=== PATIENT | male | born 1955 | race Asian ===

== ENCOUNTER 2018-03-02 14:35 | Inpatient (IN) | payer OTHER ==
[~2018-03-02] VITALS: Ht 172.7 cm; Wt 124.9 kg
[2018-03-02] MEDS ORDERED: AMLO10TA6 PO (15:15)
[2018-03-02] MEDS ORDERED: HYDR25TA4 PO (15:15)
[2018-03-02] MEDS ORDERED: POTA-10 PO (15:15)
[2018-03-02] MEDS ORDERED: CYCL5TAB PO (15:15)
[2018-03-02] MEDS ORDERED: METO50TA16 PO (15:15)
[2018-03-02] MEDS ORDERED: ENAL20TA PO (15:15)
[2018-03-02] MEDS ORDERED: HYDR-3326 PO (15:15)
[2018-03-02] MEDS ORDERED: METF-440 PO (15:15)
[2018-03-02] MEDS ORDERED: ONDANSETRON 4 MG/2 ML VIAL IV ONE (15:30)
[2018-03-02] MEDS ORDERED: MORPHINE SULFATE 2 MG/1 ML DISP.SYRIN IV ONE (15:30)
[2018-03-02] MEDS ORDERED: IV NORMAL SALINE 1000 ML BAG IV ONE (15:30)
[2018-03-02] MEDS ORDERED: ONDANSETRON 4 MG/2 ML VIAL ONE (15:39)
[2018-03-02] MEDS ORDERED: MORPHINE SULFATE 4 MG/1 ML DISP.SYRIN ONE (15:39)
[2018-03-02 15:40] LABS: BASOPHILS # (AUTO) 0.2 K/uL (0.0-8.0); BASOPHILS % (AUTO) 1.8 % (0.0-2.0); EOSINOPHILS # (AUTO) 0.2 K/uL (0.0-0.7); EOSINOPHILS % (AUTO) 1.1 % (0.0-7.0); HEMATOCRIT 36.6 % (36.7-47.1); HEMOGLOBIN 12.5 g/dL (12.5-16.3); LYMPHOCYTES # (AUTO) 1.3 K/uL (20.0-40.0); LYMPHOCYTES % (AUTO) 9.1 % (20.5-51.5); MEAN CORPUSCULAR HEMOGLOBIN 30.9 uug (23.8-33.4); MEAN CORPUSCULAR HGB CONC 34 g/dL (32.5-36.3); MEAN CORPUSCULAR VOLUME 90.6 fL (73.0-96.2); MONOCYTES # (AUTO) 1.4 K/uL (2.0-10.0); MONOCYTES % (AUTO) 10.2 % (0.0-11.0); NEUTROPHILS # (AUTO) 10.8 K/uL (1.8-8.9); NEUTROPHILS % (AUTO) 77.8 % (38.5-71.5); PLATELET COUNT (AUTO) 177 K/uL (152-348); RED BLOOD CELL COUNT(AUTO) 4.04 MIL/uL (4.06-5.63); WHITE BLOOD COUNT (AUTO) 13.9 K/uL (3.6-10.2)
[2018-03-02 15:55] LABS: BILIRUBIN,DIRECT 0.4 mg/dL (0.0-0.2); CREATININE 0.9 mg/dL (0.6-1.3); TOTAL PROTEIN, SERUM 7.2 g/dL (6.4-8.2)
[2018-03-02] MEDS ORDERED: INSU3INS8 SQ (15:57)
[2018-03-02 15:59] LABS: POTASSIUM 2.6 mmol/L (3.5-5.1)
--- NOTE | 2018-03-02 16:00 | NUR ---
hands off report given to hleena melgar lvn
[2018-03-02 16:15] LABS: BAND % (MANUAL) 2 % (0-10); EOSINOPHILS % (MANUAL) 2 % (0-8); LYMPHOCYTES % (MANUAL) 10 % (20-40); MONOCYTES % (MANUAL) 10 % (2-10); NEUTROPHILS % (MANUAL) 76 % (42-75)
[2018-03-02] MEDS ORDERED: POTASSIUM BICARBONATE/CIT AC 25 MEQ TABLET.EFF PO ONE (16:15)
[2018-03-02] MEDS ORDERED: POTASSIUM BICARBONATE/CIT AC 25 MEQ TABLET.EFF ONE (16:28)
[2018-03-02] MEDS ORDERED: POTASSIUM CHLORIDE 50 ML ONE (16:29)
[2018-03-02] MEDS: POTASSIUM CHLORIDE 50 ML IV SCH ×2 (16:38→16:39)
[2018-03-02 16:42] LABS: *BILIRUBIN,URIN NEGATIVE (NEGATIVE); *BLOOD, URINE 2+ (NEGATIVE); *CLARITY,URINE CLEAR (CLEAR); *COLOR,URINE YELLOW (YELLOW); *KETONES,URINE TRACE (NEGATIVE); *PROTEIN,URINE 1+ (NEGATIVE); *UROBILINOGEN,URINE 0.2 E.U./dl (NORMAL); LEUKOCYTE ESTERASE ,URINE NEGATIVE (NEGATIVE); NITRITE, URINE NEGATIVE (NEGATIVE); PH,URINE 5.5 (5.0-8.0); UGLUCOSE TRACE (NEGATIVE)
[2018-03-02] MEDS ORDERED: MAGNESIUM SULFATE/D5W 100 ML ONE (16:43)
[2018-03-02] MEDS: MAGNESIUM SULFATE/D5W 100 ML IV SCH (16:45)
[2018-03-02 16:49] LABS: MUCUS,URINE MODERATE /LPF (0-FEW); SQUAMOUS EPITHELIAL CELL,UR FEW /HPF (NONE SEEN); WBC,URINE 0-3 /HPF (0-3)
[2018-03-02] MEDS ORDERED: SWABABLE VALVE TRANSFER SET EA MC ONE (18:03)
[2018-03-02] MEDS ORDERED: NORMAL SALINE FLUSH 10 ML DISP.SYRIN ONE (18:03)
[2018-03-02] MEDS ORDERED: IOHEXOL 300MG/ML 100 ML INFUS..BTL ONE (18:03)
[2018-03-02] MEDS ORDERED: IV NORMAL SALINE 250 ML IV ONE (18:04)
--- NOTE | 2018-03-02 19:54 | NUR ---
Pt. admitted to TELE, under care of Dr. Abraham Belongs List completed.
[2018-03-02 20:00] VITALS: BP 157/89
--- NOTE | 2018-03-02 20:30 | NUR ---
RECEIVED PT FROM ER VIA [facility]. PT UNDER THE CARE OF DR. FERNANDEZ DX: BACK PAIN. PT SHOWS NO SIGNS OF DISTRESS. IV INTACT AND PATENT. BELONGING LIST DONE. ADMISSION PROCESS AND CARE PLAN INITIATED. NURSING HOME ASSESSMENT DONE. LOWER BILATERAL EXTREMITIES HAS DISCOLORATION AND HAS 1+ PITTING EDEMA. PT HAVE 10/10 PAIN ON THE BACK. WILL CONTINUE TO MONITOR.
--- NOTE | 2018-03-02 20:31 | NUR ---
PT HAS SURGICAL INCISION SITE ON HIS BACK WITH DRESSING INTACT. DIDN'T TAKE A PICTURE OF IT. BECAUSE PT REFUSED TO TAKE A PICTURE BECAUSE OF PAIN. PT STABLE. WILL CONTINUE TO MONITOR.
[2018-03-02] MEDS ORDERED: HYDROCODONE/APAP 5-325MG TABLET PO PRN (21:45)
[2018-03-02] MEDS ORDERED: Medication Not On Formulary EA (Cyclobenzaprine Hcl 10 MG) PO SCH (21:45)
[2018-03-02] MEDS ORDERED: ONDANSETRON 4 MG/2 ML VIAL IV PRN (21:45)
[2018-03-02] MEDS ORDERED: TEMAZEPAM 15 MG CAPSULE PO PRN (21:45)
[2018-03-02] MEDS ORDERED: PIPERACILLIN/TAZOBACTAM/D5W 3.375 G in PREMIXED 1 EACH IV SCH (22:00)
[2018-03-02] MEDS ORDERED: INSULIN REGULAR, HUMAN 300 UNIT/3 ML VIAL SQ PRN (22:00)
[2018-03-02] MEDS ORDERED: DEXTROSE 50% 50 ML DISP.SYRIN IV PRN (22:00)
[2018-03-02] MEDS ORDERED: PIPERACILLIN/TAZOBACTAM/D5W 3.375 G in PREMIXED 1 EACH IV ONE (22:30)
[2018-03-02] MEDS ORDERED: VANCOMYCIN IV 2,000 MG in IV DEXTROSE 5% 500 ML IV ONE (23:00)
[2018-03-02] MEDS: METOPROLOL TARTRATE 50 MG TABLET PO SCH (23:10)
[2018-03-02] MEDS: HYDROCODONE/APAP 5-325MG TABLET PO PRN (23:11)
[2018-03-02] MEDS ORDERED: PIPERACILLIN/TAZOBACTAM/D5W 50 ML IV ONE (23:16)
[2018-03-02] MEDS: ACETAMINOPHEN 325 MG TABLET PO PRN (23:40)
[2018-03-02] MEDS: IV 1/2 NS + KCL 20 MEQ BAG 1,000 ML IV PRN (23:41)
[2018-03-03] VITALS: BP 155/84
[2018-03-03] MEDS ORDERED: VANCOMYCIN 1000 MG VIAL ONE (00:15)
[2018-03-03 04:00] VITALS: BP 123/73
[2018-03-03] MEDS: PANTOPRAZOLE SODIUM 40 MG TABLET.DR PO SCH (06:10)
[2018-03-03 06:27] LABS: EOSINOPHILS # (AUTO) 0.2 K/uL (0.0-0.7); HEMOGLOBIN 11.8 g/dL (12.5-16.3); LYMPHOCYTES # (AUTO) 1.4 K/uL (20.0-40.0); MONOCYTES # (AUTO) 0.9 K/uL (2.0-10.0)
--- NOTE | 2018-03-03 06:28 | NUR ---
PT SLEPT THROUGHOUT THE SHIFT. PT SHOWS NO SIGNS OF DISTRESS.PT ASK FOR PAIN MEDICATION BECAUSE OF 10/10 PAIN ON HIS BACK.INCISION SITE AT THE BACK OF THE PT. WOUND DRESSING INTACT ON THE BACK. NO PICTURE TAKEN BECAUSE PT REFUSED BECAUSE OF BACK PAIN. COMPLIANT WITH CARE. PRESCRIBED MEDICATION GIVEN AND PT TOLERATED IT WELL.SAFETY AND COMFORT PROVIDED. WILL ENDORSE ACCORDINGLY TO INCOMING NURSE FOR CONTINUITY OF CARE.
[2018-03-03 06:36] LABS: THYROID STIMULATING HORMONE 1.188 mIU/mL (0.358-3.740)
[2018-03-03 06:46] LABS: BASOPHILS % (AUTO) 0.4 % (0.0-2.0); EOSINOPHILS % (AUTO) 1.8 % (0.0-7.0); LYMPHOCYTES % (AUTO) 14.3 % (20.5-51.5); MEAN CORPUSCULAR HEMOGLOBIN 31.7 uug (23.8-33.4); MEAN CORPUSCULAR HGB CONC 35 g/dL (32.5-36.3); MEAN CORPUSCULAR VOLUME 91.3 fL (73.0-96.2); MONOCYTES % (AUTO) 9.3 % (0.0-11.0); NEUTROPHILS # (AUTO) 7.5 K/uL (1.8-8.9); NEUTROPHILS % (AUTO) 74.2 % (38.5-71.5); PLATELET COUNT (AUTO) 158 K/uL (152-348); RED BLOOD CELL COUNT(AUTO) 3.73 MIL/uL (4.06-5.63)
[2018-03-03 06:47] LABS: WHITE BLOOD COUNT (AUTO) 10.1 K/uL (3.6-10.2)
[2018-03-03 07:10] LABS: BILIRUBIN,TOTAL 1.5 mg/dL (0.2-1.0); CREATININE 0.9 mg/dL (0.6-1.3); MAGNESIUM 1.4 mg/dL (1.8-2.4); PHOSPHOROUS 2.1 mg/dL (2.5-4.9); TOTAL PROTEIN, SERUM 6.4 g/dL (6.4-8.2)
[2018-03-03 07:15] LABS: POTASSIUM 2.7 mmol/L (3.5-5.1)
[2018-03-03] MEDS ORDERED: TEMAZEPAM 7.5 MG CAPSULE PO PRN (07:15)
[2018-03-03] MEDS ORDERED: CYCLOBENZAPRINE HCL 10 MG TABLET PO PRN (07:15)
--- NOTE | 2018-03-03 07:26 | NUR ---
CALLED [facility] FOR ABNORMAL LABS FOR POTASSIUM 2.7 . 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 ENDORSE TO MODE SCANLON . CHARGE NURSE AWARE.
[2018-03-03] MEDS ORDERED: BLOOD SUGAR DIAGNOSTIC 1 EACH STRIP VI SCH (07:30)
[2018-03-03] MEDS: HYDROCODONE/APAP 5-325MG TABLET PO PRN ×3 (07:45→22:32)
[2018-03-03] MEDS: ENALAPRIL 10 MG TABLET PO SCH ×2 (08:10→20:37)
[2018-03-03] MEDS: HYDROCHLOROTHIAZIDE 25 MG TABLET PO SCH (08:10)
[2018-03-03] MEDS: POTASSIUM CHLORIDE 8 MEQ TAB.PRT.SR PO SCH (08:11)
[2018-03-03] MEDS: METOPROLOL TARTRATE 50 MG TABLET PO SCH ×2 (08:11→20:36)
[2018-03-03] MEDS: PIPERACILLIN/TAZOBACTAM/D5W 3.375 G in PREMIXED 1 EACH IV SCH ×4 (08:46→23:15)
[2018-03-03] MEDS ORDERED: POTASSIUM CHLORIDE 16 MEQ PO SCH (09:00)
[2018-03-03] MEDS: AMLODIPINE 10 MG TABLET PO SCH (09:25)
[2018-03-03 10:15] VITALS: BP 120/76
[2018-03-03] MEDS ORDERED: MAGNESIUM SULFATE/D5W 100 ML IV SCH (10:30)
[2018-03-03] MEDS ORDERED: NEUTRA PHOS PACKET PO ONE (10:30)
[2018-03-03] MEDS ORDERED: DEXTROSE 50% 50 ML DISP.SYRIN IV PRN (10:30)
[2018-03-03] MEDS: BLOOD SUGAR DIAGNOSTIC 1 EACH STRIP VI SCH ×3 (11:30→20:37)
--- NOTE | 2018-03-03 11:48 | NUR ---
Clinical Pharmacy Note: Vancomycin Pharmacy to Dose Subjective: To start vancomycin in this 62 y/o male for SI (waiting for MD note) Objective: weight 124.8 kg height 172.7 cm BUN 9 Scr 0.9 Wbc 10.1 temp 98 Assessment/Plan Patient received vanco 2gm IVPB x1 i ED on 03/02 at 2300. Will start vanco 2000mg IVPB q14H for predicted vanco trough level of 15 mcg/ml at steady state. 2nd dose due today at 1300. Plan to check vanco trough level before 4th dose (not yet ordered). Will monitor renal function & adjust the dose if needed. will follow.
[2018-03-03] MEDS: MAGNESIUM SULFATE/D5W 100 ML IV SCH ×3 (12:14→15:02)
[2018-03-03] MEDS: POTASSIUM CHLORIDE 50 ML IV SCH ×4 (12:14→15:02)
[2018-03-03] MEDS: VANCOMYCIN IV 2,000 MG in IV DEXTROSE 5% 500 ML IV SCH (14:00)
[2018-03-03] MEDS: ACETAMINOPHEN 325 MG TABLET PO PRN (14:46)
[2018-03-03 15:07] VITALS: BP 163/84
[2018-03-03 16:28] LABS: MAGNESIUM 2.1 mg/dL (1.8-2.4); PHOSPHOROUS 2.5 mg/dL (2.5-4.9); POTASSIUM 3.3 mmol/L (3.5-5.1)
[2018-03-03] MEDS: INSULIN REGULAR, HUMAN 300 UNIT/3 ML VIAL SQ PRN (18:03)
--- NOTE | 2018-03-03 18:53 | NUR ---
TODAY PT WAS SENT TO [place] FOR AN MRI. PER STAFF AT THE MRI FACILITY THEY STATED THAT THE PT WAS PANICKED AND PT DID NOT FIT IN THE MRI. PT'S SURGEON CALLED AND CONFIRMED THAT HE HAS HAD MRI BEFORE BUT REQUIRES AN OPEN MRI. PT'S SURGEON CALLED AND EXPLAINED THAT HE IS AWARE OF PT FOOT DROP. NEURO ASSESSED PT'S FOOT. NOTIFIED. PT HAS HAD MAGNESIUM, POTASSIUM, AND PHOSPHATE REPLACED. PT FAMILY AT THE BEDSIDE. PT WAS SEEN BY NEURO AND ID. PT HAD FEVER AND WAS GIVEN TYLENOL. PT CURRENT TEMPERATURE IS 99.6. NO SIGNS OF RESPIRATORY DISTRESS AT THIS TIME. CONTINUE TO MONITOR PT.
[2018-03-03 19:19] VITALS: BP 116/71
--- NOTE | 2018-03-03 19:20 | NUR ---
RECEIVED PT AWAKE, ALERT, ORIENTEDX3. PT SHOWS NO ACUTE DISTRESS. FAMILY AT BEDSIDE.IV INTACT.SAFETY AND COMFORT PROVIDED. WILL CONTINUE TO MONITOR.
[2018-03-03] MEDS: DOCUSATE SODIUM 100 MG CAPSULE PO SCH (20:36)
[2018-03-03] MEDS: INSULIN REGULAR, HUMAN 300 UNITS/3 ML VIAL SQ PRN (20:38)
[2018-03-03] MEDS ORDERED: DOCUSATE SODIUM 250 MG CAPSULE PO SCH (21:00)
[2018-03-03] MEDS: IV 1/2 NS + KCL 20 MEQ BAG 1,000 ML IV PRN (22:42)
[2018-03-03 23:45] VITALS: BP 139/80
[2018-03-04] MEDS: VANCOMYCIN IV 2,000 MG in IV DEXTROSE 5% 500 ML IV SCH ×2 (02:20→18:00)
[2018-03-04 03:45] VITALS: BP 141/81
[2018-03-04 05:27] LABS: *BILIRUBIN,URIN NEGATIVE (NEGATIVE); *BLOOD, URINE Trace-intact (NEGATIVE); *CLARITY,URINE CLEAR (CLEAR); *COLOR,URINE YELLOW (YELLOW); *KETONES,URINE TRACE (NEGATIVE); *PROTEIN,URINE TRACE (NEGATIVE); LEUKOCYTE ESTERASE ,URINE NEGATIVE (NEGATIVE); NITRITE, URINE NEGATIVE (NEGATIVE); PH,URINE 5.5 (5.0-8.0)
[2018-03-04 05:42] LABS: UGLUCOSE 1+ (NEGATIVE)
[2018-03-04 05:43] LABS: BACTERIA,URINE NONE SEEN /HPF (NONE SEEN); RBC,URINE NONE SEEN /HPF (0-3); SQUAMOUS EPITHELIAL CELL,UR FEW /HPF (NONE SEEN); WBC,URINE NONE SEEN /HPF (0-3)
[2018-03-04 05:50] LABS: *CREATININE,URINE 94.7 mg/dL (30-125); *URINE TOTAL PROTEIN RANDOM 52.6 mg/dL (<150/24HR)
[2018-03-04] MEDS: PANTOPRAZOLE SODIUM 40 MG TABLET.DR PO SCH (06:01)
--- NOTE | 2018-03-04 06:11 | NUR ---
PT SLEPT THROUGHOUT THE SHIFT . PT SHOWS NO SIGNS OF DISTRESS.PRESCRIBED MEDICATION GIVEN AND PT TOLERATED IT WELL. PT GIVEN PAIN MEDICATION . PT TOLERATED IT WELL. PT REFUSED TO TAKE OUT HIS SURGICAL DRESSING TO TAKE A PICTURE. CHARGE NURSE AWARE. SAFETY AND COMFORT PROVIDED. WILL ENDORSE TO INCOMING NURSE FOR CONTINUITY OF CARE.
[2018-03-04] MEDS: HYDROCODONE/APAP 5-325MG TABLET PO PRN (06:30)
[2018-03-04] MEDS: BLOOD SUGAR DIAGNOSTIC 1 EACH STRIP VI SCH ×4 (06:31→20:12)
[2018-03-04 06:43] LABS: BASOPHILS % (AUTO) 0.4 % (0.0-2.0); EOSINOPHILS # (AUTO) 0.3 K/uL (0.0-0.7); HEMATOCRIT 34.2 % (36.7-47.1); HEMOGLOBIN 11.8 g/dL (12.5-16.3); LYMPHOCYTES % (AUTO) 10.7 % (20.5-51.5); MEAN CORPUSCULAR HEMOGLOBIN 31.5 uug (23.8-33.4); MEAN CORPUSCULAR HGB CONC 34 g/dL (32.5-36.3); MEAN CORPUSCULAR VOLUME 91.4 fL (73.0-96.2); MONOCYTES # (AUTO) 0.8 K/uL (2.0-10.0); MONOCYTES % (AUTO) 8.4 % (0.0-11.0); NEUTROPHILS # (AUTO) 6.9 K/uL (1.8-8.9); NEUTROPHILS % (AUTO) 77.5 % (38.5-71.5); PLATELET COUNT (AUTO) 191 K/uL (152-348); RED BLOOD CELL COUNT(AUTO) 3.75 MIL/uL (4.06-5.63); WHITE BLOOD COUNT (AUTO) 8.9 K/uL (3.6-10.2)
[2018-03-04 07:01] LABS: BILIRUBIN,TOTAL 1.1 mg/dL (0.2-1.0); CREATININE 0.9 mg/dL (0.6-1.3); MAGNESIUM 1.9 mg/dL (1.8-2.4); POTASSIUM 3.2 mmol/L (3.5-5.1); TOTAL PROTEIN, SERUM 6.8 g/dL (6.4-8.2)
[2018-03-04 08:14] VITALS: BP 137/71
[2018-03-04] MEDS: METOPROLOL TARTRATE 50 MG TABLET PO SCH ×2 (08:15→20:25)
[2018-03-04] MEDS: POTASSIUM CHLORIDE 8 MEQ TAB.PRT.SR PO SCH (08:15)
[2018-03-04] MEDS: AMLODIPINE 10 MG TABLET PO SCH (08:16)
[2018-03-04] MEDS: ENALAPRIL 10 MG TABLET PO SCH ×2 (08:16→22:10)
[2018-03-04] MEDS: HYDROCHLOROTHIAZIDE 25 MG TABLET PO SCH (08:16)
[2018-03-04] MEDS: PIPERACILLIN/TAZOBACTAM/D5W 3.375 G in PREMIXED 1 EACH IV SCH ×3 (08:17→23:43)
[2018-03-04] MEDS: INSULIN REGULAR, HUMAN 300 UNIT/3 ML VIAL SQ PRN ×3 (08:25→16:43)
[2018-03-04] MEDS: POTASSIUM PHOSPHATE MM 5 MMOL in IV DEXTROSE 5% 100 ML IV SCH ×4 (10:28→20:21)
[2018-03-04 10:59] VITALS: BP 141/78
[2018-03-04 11:05] VITALS: BP 143/69
[2018-03-04] MEDS: MORPHINE SULFATE 2 MG/1 ML DISP.SYRIN IV PRN (11:05)
--- NOTE | 2018-03-04 12:08 | NUR ---
Clinical Pharmacy Note: Vancomycin Pharmacy to Dose Subjective: To continue vancomycin in this 62 y/o male for SI (SIRS: R/O sepsis) Objective: weight 124.8 kg height 172.7 cm BUN 9 Scr 0.9 Wbc 8.9 temp 99 Assessment/Plan Will continue vanco 2000mg IVPB q14H for predicted vanco trough level of 15 mcg/ml at steady state. 3rd dose given today at 0300. Plan to check vanco trough level before 4th dose (ordered for today at 1630). Will monitor renal function & adjust the dose if needed. will follow. Addendum: 03/04/18 at 1731 by MADELINE DAWSON VANCOMYCIN TROUGH 12.4 TODAY AT 1630. WILL INCREASE DOSE TO 2000MG IV EVERY 12HRS FOR TROUGH AROUND 16.3
[2018-03-04 15:06] VITALS: BP 135/63
[2018-03-04 19:41] VITALS: BP 149/79
--- NOTE | 2018-03-04 20:00 | NUR ---
Received patient laying comfortably in bed. HOB elevated. A/O x 4 mainly Syriac speaking but understands Luxembourgish. In O2 2L NC. IV Abx on the Right FA and Left AC, patent and intact. Patient c/o pain in his back 11/22. Safety initiated. Call light within reach.
[2018-03-04] MEDS: DOCUSATE SODIUM 100 MG CAPSULE PO SCH (20:24)
[2018-03-04] MEDS: LACTOBACILLUS RHAMNOSUS GG 1 EACH CAPSULE PO SCH (20:25)
[2018-03-04] MEDS: INSULIN GLARGINE,HUM 300 UNITS/3 ML CARTRIDGE SQ SCH (20:30)
[2018-03-04] MEDS: INSULIN REGULAR, HUMAN 300 UNITS/3 ML VIAL SQ PRN (20:32)
[2018-03-05 03:47] VITALS: BP 151/79
--- NOTE | 2018-03-05 05:30 | NUR ---
No changes t/o shift. Patient remains A/O x 3. On O2 2L NC. Good urine output. Vital signs stable. C/o back pain. Medication given, stated relief. IVF and abx infusing. Comfort and safety measures maintained t/o shift. All meds given as ordered. All needs met.
[2018-03-05] MEDS: IV 1/2 NS + KCL 20 MEQ BAG 1,000 ML IV PRN (06:14)
[2018-03-05] MEDS: VANCOMYCIN IV 2,000 MG in IV DEXTROSE 5% 500 ML IV SCH ×2 (06:14→17:05)
[2018-03-05] MEDS: PANTOPRAZOLE SODIUM 40 MG TABLET.DR PO SCH (06:14)
[2018-03-05 06:21] LABS: BASOPHILS # (AUTO) 0.1 K/uL (0.0-8.0); BASOPHILS % (AUTO) 0.8 % (0.0-2.0); EOSINOPHILS # (AUTO) 0.2 K/uL (0.0-0.7); EOSINOPHILS % (AUTO) 3.6 % (0.0-7.0); HEMATOCRIT 35.3 % (36.7-47.1); HEMOGLOBIN 11.9 g/dL (12.5-16.3); MEAN CORPUSCULAR HGB CONC 34 g/dL (32.5-36.3); MEAN CORPUSCULAR VOLUME 91.4 fL (73.0-96.2); MONOCYTES # (AUTO) 0.7 K/uL (2.0-10.0); MONOCYTES % (AUTO) 9.9 % (0.0-11.0); NEUTROPHILS # (AUTO) 4.9 K/uL (1.8-8.9); NEUTROPHILS % (AUTO) 71.7 % (38.5-71.5); PLATELET COUNT (AUTO) 223 K/uL (152-348); RED BLOOD CELL COUNT(AUTO) 3.86 MIL/uL (4.06-5.63); WHITE BLOOD COUNT (AUTO) 6.9 K/uL (3.6-10.2)
[2018-03-05 06:29] LABS: CREATININE 0.9 mg/dL (0.6-1.3); POTASSIUM 3.2 mmol/L (3.5-5.1)
[2018-03-05] MEDS: BLOOD SUGAR DIAGNOSTIC 1 EACH STRIP VI SCH ×4 (06:51→21:13)
--- NOTE | 2018-03-05 07:15 | NUR ---
Received report from lieutenant shift supervisor nurse, patient in bed awake, reports pain. pain medication will be administered, bed in low position, side rails up x2, bed alarm on.
[2018-03-05] MEDS: PIPERACILLIN/TAZOBACTAM/D5W 3.375 G in PREMIXED 1 EACH IV SCH ×3 (08:02→23:53)
[2018-03-05] MEDS: MORPHINE SULFATE 2 MG/1 ML DISP.SYRIN IV PRN ×3 (08:40→21:12)
[2018-03-05] MEDS: LACTOBACILLUS RHAMNOSUS GG 1 EACH CAPSULE PO SCH ×2 (08:43→21:06)
[2018-03-05] MEDS: METOPROLOL TARTRATE 50 MG TABLET PO SCH ×2 (08:43→21:06)
[2018-03-05] MEDS: AMLODIPINE 10 MG TABLET PO SCH (08:43)
[2018-03-05] MEDS: POTASSIUM CHLORIDE 8 MEQ TAB.PRT.SR PO SCH (08:44)
[2018-03-05] MEDS: ENALAPRIL 10 MG TABLET PO SCH ×2 (08:44→21:07)
[2018-03-05] MEDS: HYDROCHLOROTHIAZIDE 25 MG TABLET PO SCH (08:46)
[2018-03-05] MEDS: INSULIN REGULAR, HUMAN 300 UNIT/3 ML VIAL SQ PRN ×3 (08:53→17:03)
[2018-03-05] MEDS: ACETAMINOPHEN 325 MG TABLET PO PRN (10:57)
--- NOTE | 2018-03-05 11:18 | NUR ---
patient noted to have elevated temperature. provided tylenol to patient, instructed on IS, and cooling measres observed.
[2018-03-05 11:26] VITALS: BP 131/69
--- NOTE | 2018-03-05 11:50 | NUR ---
Clinical Pharmacy Note: Vancomycin Pharmacy to Dose Subjective: To continue vancomycin in this 62 y/o male for SI (SIRS: R/O sepsis) Objective: weight 124.8 kg height 172.7 cm BUN 10 Scr 0.9 Wbc 6.9 temp 99.3 Assessment/Plan Will continue same dose of vanco 2000mg IVPB q12H for today. 3rd dose due today at 1800. Plan to check vanco trough level before 4th dose (ordered for tomorrow at 0530- RN has been informed to hold 0600 dose if vanco trough level is above 20 mcg/ml). Pharmacy shall review the level in am & adjust the anton if needed. will follow.
[2018-03-05] MEDS ORDERED: POTASSIUM CHLORIDE 20 MEQ TAB.PRT.SR PO ONE (15:00)
[2018-03-05 15:11] VITALS: BP 148/84
--- NOTE | 2018-03-05 18:16 | NUR ---
Patient has been cooperative with care, all needs met, and pain managed. Currently patient is in bed, no distress noted, bed in low position, side rails up x2, family at bedside.
[2018-03-05 19:38] VITALS: BP 144/78
--- NOTE | 2018-03-05 20:00 | NUR ---
Received patient laying comfortably in bed. HOB elevated. A/O x 4 mainly Japanese speaking but understands Upper Sorbian. In O2 2L NC. IVF and Abx on the Right FA and Left FA, patent and intact. Patient c/o pain in his back 11/22, back sx dressing C/D/I with no drainage. Urinal at bedside. Safety initiated. Call light within reach.
[2018-03-05] MEDS: DOCUSATE SODIUM 100 MG CAPSULE PO SCH (21:06)
[2018-03-05] MEDS: INSULIN REGULAR, HUMAN 300 UNITS/3 ML VIAL SQ PRN (21:16)
[2018-03-05] MEDS: INSULIN GLARGINE,HUM 300 UNITS/3 ML CARTRIDGE SQ SCH (21:16)
[2018-03-06] VITALS (11 sets, daily range): BP systolic 68–158; BP diastolic 39–84
--- NOTE | 2018-03-06 05:32 | NUR ---
No changes t/o shift. Patient remains A/O x 3. On O2 2L NC. Good urine output. Vital signs stable. C/o back pain. Medication given, stated relief. IVF and abx infusing. Back sx dressing, C/D/I. Comfort and safety measures maintained t/o shift. All meds given as ordered. All needs met.
[2018-03-06 06:00] LABS: CREATININE 0.9 mg/dL (0.6-1.3); POTASSIUM 3.6 mmol/L (3.5-5.1)
[2018-03-06] MEDS: VANCOMYCIN IV 2,000 MG in IV DEXTROSE 5% 500 ML IV SCH ×2 (06:23→17:17)
[2018-03-06] MEDS: PANTOPRAZOLE SODIUM 40 MG TABLET.DR PO SCH (06:23)
[2018-03-06] MEDS: BLOOD SUGAR DIAGNOSTIC 1 EACH STRIP VI SCH ×4 (06:30→21:31)
[2018-03-06] MEDS: PIPERACILLIN/TAZOBACTAM/D5W 3.375 G in PREMIXED 1 EACH IV SCH ×3 (08:09→23:33)
[2018-03-06] MEDS: LACTOBACILLUS RHAMNOSUS GG 1 EACH CAPSULE PO SCH ×2 (08:26→21:18)
[2018-03-06] MEDS: METOPROLOL TARTRATE 50 MG TABLET PO SCH ×2 (08:26→21:23)
[2018-03-06] MEDS: ENALAPRIL 10 MG TABLET PO SCH ×2 (08:27→21:18)
[2018-03-06] MEDS: AMLODIPINE 10 MG TABLET PO SCH (08:27)
[2018-03-06] MEDS: POTASSIUM CHLORIDE 8 MEQ TAB.PRT.SR PO SCH (08:28)
[2018-03-06] MEDS: HYDROCHLOROTHIAZIDE 25 MG TABLET PO SCH (08:28)
[2018-03-06] MEDS: INSULIN REGULAR, HUMAN 300 UNIT/3 ML VIAL SQ PRN ×3 (08:29→17:15)
--- NOTE | 2018-03-06 10:27 | NUR ---
Clinical Pharmacy Note: Vancomycin Pharmacy to Dose Subjective: To continue vancomycin in this 62 y/o male for SI (SIRS: R/O sepsis) Objective: weight 124.8 kg height 172.7 cm BUN 13 Scr 0.9 Wbc 6.9 temp 98.7 vancomycin trough 18.9 today at 0530 Assessment/Plan Since level is within the range, will continue same dose of vanco 2000mg IVPB q12H for now Pharmacy shall review the renal function daily& adjust the dose if needed. will follow.
--- NOTE | 2018-03-06 10:41 | NUR ---
I was made aware of pt's BP 68/39 by the nurse I'm orienting . Charge nurse was already calling rapid response. At this time pt is resting in bed, calm, with caregiver and daughter at the bedside. Bp was takne at 1013 bp 131/62, on a mask running at 10ml o2 saturating at 98%, heart rate 88. pt is stable at this time. Addendum: 03/06/18 at 1045 by GHISLAINE JENKINS RN wrong pt
--- NOTE | 2018-03-06 14:37 | NUR ---
03/06/2018 @5156 Spoke with the Ms. Mckinney and Mr. Longoria in his room and noted daughter to be with them. Mr. Marte stated that they are from the [facility] and are currently stating at a hotel near . After an accident, Mr. Marte and his stated that the agile business analyst recommended Dr. Paz as a doctor for surgery. It was informed by Serge VILLEDA that per Dr. Paz the patient went to an MRI at [facility]. Per Mr. Marte he was able to recognized the building an stated it was in [place], after further investigation he realized it was the [facility] in [place] [[address], [address], ([phone], fax . Mr. Marte stated that during the original MRI, he was placed with feet first, making him less claustrophobic. Call [facility] and they are closed today due to being a holiday. Serge VILLEDA is aware. Callie COELLO, CM
[2018-03-06] MEDS: IV 1/2 NS + KCL 20 MEQ BAG 1,000 ML IV PRN (15:05)
--- NOTE | 2018-03-06 18:47 | NUR ---
Pt left arm IV infiltrated. hot pack provided. new IV started on the left wrist number 22 gauge. Intact and patent. Pt wore his brace and worked with physical therapy. Pt was covered with insulin through out the day. shows no signs of hyperglycemia. Pt's pain managed through out day denies pain at this time. pt is aox4 can verbalize needs to staff. shows no signs of respiratory distress at this time. Continue to monitor pt.
--- NOTE | 2018-03-06 20:00 | NUR ---
Received pt sitting comfortably in bed. Alert and oriented x4. Singaporean speaking. Family member at bedside. Pt has pain 8/10 on a pain scale at this time. Pain management noted. Antibiotic therapy noted. Pt shows no s/s of acute distress at this time. Safety precautions implemented. Bed on low locked position. Call light within reach. Will continue to monitor closely.
[2018-03-06] MEDS: DOCUSATE SODIUM 100 MG CAPSULE PO SCH (21:18)
[2018-03-06] MEDS: INSULIN GLARGINE,HUM 300 UNITS/3 ML CARTRIDGE SQ SCH (21:29)
[2018-03-06] MEDS: INSULIN REGULAR, HUMAN 300 UNITS/3 ML VIAL SQ PRN (21:31)
[2018-03-06] MEDS: MORPHINE SULFATE 2 MG/1 ML DISP.SYRIN IV PRN (21:37)
[2018-03-07 04:23] VITALS: BP 131/87
[2018-03-07] MEDS: VANCOMYCIN IV 2,000 MG in IV DEXTROSE 5% 500 ML IV SCH (06:19)
[2018-03-07] MEDS: PANTOPRAZOLE SODIUM 40 MG TABLET.DR PO SCH ×2 (06:20→08:33)
[2018-03-07] MEDS: MORPHINE SULFATE 2 MG/1 ML DISP.SYRIN IV PRN ×2 (06:23→20:18)
[2018-03-07] MEDS: BLOOD SUGAR DIAGNOSTIC 1 EACH STRIP VI SCH ×4 (06:23→20:22)
--- NOTE | 2018-03-07 06:42 | NUR ---
Pt awake, resting comfortably in bed. Easily arousable during initial rounds t/o the night. O2 sat 96% via 2L NC. Pain medication given x2 with effect. Carried out medication orders. BG 370 at this time. Pt shows no signs of acute distress. Denies SOB, pain, or severe headache. Safety precautions maintained at all time. Will continue to monitor and endorse continuity of care to day shift nurse.
--- NOTE | 2018-03-07 07:15 | NUR ---
PATIENT ASLEEP IN BED. EASILY AROUSABLE. DENIES CHEST PAIN OR SOB. PATIENT STATED HAS MILD BACK PAIN BUT DOES NOT NEED MEDICATION FOR PAIN AT THIS TIME. IV SITE ON LT. WRIST AND RT. WRIST, BOTH PATENT AND INTACT. WILL CONTINUE TO MONITOR FOR SAFETY AND COMFORT. ALL NEEDS ATTENDED AND MET. CALL ROPER WITHIN REACH.
[2018-03-07] MEDS: PIPERACILLIN/TAZOBACTAM/D5W 3.375 G in PREMIXED 1 EACH IV SCH ×2 (08:27→15:43)
[2018-03-07] MEDS: ENALAPRIL 10 MG TABLET PO SCH ×2 (08:31→20:18)
[2018-03-07] MEDS: LACTOBACILLUS RHAMNOSUS GG 1 EACH CAPSULE PO SCH ×2 (08:31→20:18)
[2018-03-07] MEDS: POTASSIUM CHLORIDE 8 MEQ TAB.PRT.SR PO SCH (08:33)
[2018-03-07] MEDS: METOPROLOL TARTRATE 50 MG TABLET PO SCH ×2 (08:33→20:17)
[2018-03-07] MEDS: HYDROCHLOROTHIAZIDE 25 MG TABLET PO SCH (08:33)
[2018-03-07] MEDS: AMLODIPINE 10 MG TABLET PO SCH (08:34)
[2018-03-07] MEDS: INSULIN REGULAR, HUMAN 300 UNIT/3 ML VIAL SQ PRN ×3 (08:37→17:05)
--- NOTE | 2018-03-07 10:33 | NUR ---
Clinical Pharmacy Note: Vancomycin Pharmacy to Dose Subjective: To continue vancomycin in this 62 y/o male for SI (SIRS: R/O sepsis) Objective: weight 124.8 kg height 172.7 cm BUN 13 (03/06) Scr 0.9 (03/06) Wbc 6.9(03/06) temp 98.7 vancomycin trough 18.9 (on 03/06 at 0530) Assessment/Plan Will continue same dose of vanco 2000mg IVPB q12H for today (no new labs today) Pharmacy shall review the renal function (ordered BMP for 03/08) & adjust the dose if needed. will follow.
[2018-03-07 11:55] VITALS: BP 129/72
[2018-03-07 15:50] VITALS: BP 145/68
--- NOTE | 2018-03-07 17:05 | NUR ---
PATIENT COMPLAINED OF NOT HAVING A BOWEL MOVEMENT FOR 6 DAYS TO JOHAN Burns NP. WITH NURSE IN ROOM. NURSE OFFERED TO BRING PATIENT PRUNE JUICE BUT PATIENT REFUSED. OFFERED MEDICATION TO HELP HIM HAVE A BOWEL MOVEMENT BUT PATIENT REFUSED. PATIENT DENIES PAIN TO THE ABDOMEN. WILL CONTINUE TO MONITOR PATIENT.
--- NOTE | 2018-03-07 18:01 | NUR ---
PATIENT AOX4 THROUGHOUT THE SHIFT. AND DAUGHTER AT BEDSIDE. VITAL SIGNS STABLE THROUGHOUT THE SHIFT. DENIES CHEST PAIN OR SOB OR DISCOMFORT.
--- NOTE | 2018-03-07 19:50 | NUR ---
Received pt awake, alert and oriented x3. and daughter at bedside. Pt stable with no s/s of acute distress at this time. Pt under care of DR HANY MD. Discussed plan of care and discharge instructions. Pt will be sent home to [place] via van. Pt cooperative with care. Safety precautions implemented. Awaiting completion of discharge papers. Will continue to monitor.
[2018-03-07 20:00] VITALS: BP 142/74
[2018-03-07] MEDS ORDERED: BISACODYL 5 MG TABLET.DR PO ONE (20:00)
[2018-03-07] MEDS: DOCUSATE SODIUM 100 MG CAPSULE PO SCH (20:17)
[2018-03-07 20:18] VITALS: BP 142/74
[2018-03-07] MEDS: INSULIN REGULAR, HUMAN 300 UNITS/3 ML VIAL SQ PRN (20:23)
[2018-03-07] MEDS: INSULIN GLARGINE,HUM 300 UNITS/3 ML CARTRIDGE SQ SCH (20:24)
--- NOTE | 2018-03-07 21:00 | NUR ---
Pt sitting comfortably in chair. Pt stable, pt shows no s/s of acute distress. Denies SOB or severe headache at this time. Belongings list and discharge instructions completed. Meds were given per order before discharge. Pain med given x1 with effect. Will continue to monitor.
--- NOTE | 2018-03-07 21:15 | NUR ---
Pt stable. Pt brought down to first floor via wheelchair. Belongings sent with pt, family members at side.
== END 2018-03-07 21:19 | disposition home health service (06) | DRG 425 ==
LOC: ER 14:35 → TELE 19:43 → MED 03-04 14:40
PROVIDERS: ADMIT Internal Medicine; ATTEND Nurse Practitioner Acute Care
DX: E87.6 Hypokalemia (principal); J96.01 Acute respiratory failure with hypoxia; G92 Toxic encephalopathy; E44.0 Moderate protein-calorie malnutrition; R65.10 Systemic inflammatory response syndrome (SIRS) of non-infectious origin without acute organ dysfunction; I15.2 Hypertension secondary to endocrine disorders; R17 Unspecified jaundice; Z68.41 Body mass index [BMI] 40.0-44.9, adult; E66.01 Morbid (severe) obesity due to excess calories; E11.65 Type 2 diabetes mellitus with hyperglycemia; T40.2X5A Adverse effect of other opioids, initial encounter; T48.1X5A Adverse effect of skeletal muscle relaxants [neuromuscular blocking agents], initial encounter; Y92.013 Bedroom of single-family (private) house as the place of occurrence of the external cause; Z79.4 Long term (current) use of insulin; E78.5 Hyperlipidemia, unspecified; M21.372 Foot drop, left foot; M21.371 Foot drop, right foot; Z71.3 Dietary counseling and surveillance; T50.2X5A Adverse effect of carbonic-anhydrase inhibitors, benzothiadiazides and other diuretics, initial encounter; M51.26 Other intervertebral disc displacement, lumbar region; M51.17 Intervertebral disc disorders with radiculopathy, lumbosacral region; Z98.890 Other specified postprocedural states; R93.7 Abnormal findings on diagnostic imaging of other parts of musculoskeletal system; M48.061 Spinal stenosis, lumbar region without neurogenic claudication; D64.9 Anemia, unspecified; E83.42 Hypomagnesemia; G89.29 Other chronic pain; F40.240 Claustrophobia
CPT/HCPCS: 36415; 70030-TC; 70450; 71045; 72158; 83550; 83605; 83735; 84100; 84132; 84156; 84295; 84300; 84443; 85025; 85610; 87040; 87400; 93005; 93307; 97110; 97116; 97530; A4663; G0378; J1815; J2270; J2405; J2543; J3370; J3475; J3480; J3490; J7030; J7050; J7060; Q9967